=== PATIENT | male | born 1970 | race Caucasian/White ===

== ENCOUNTER 2017-04-16 15:57 | Emergency (ER) | payer OTHER, SELFPAY | END 2017-04-16 17:45 | disposition home or self-care (01) | PROVIDERS: Emergency Provider Emergency Medicine; Visit Provider Emergency Medicine | DX: S86.811A Strain of other muscle(s) and tendon(s) at lower leg level, right leg, initial encounter (principal); X50.0XXA Overexertion from strenuous movement or load, initial encounter; F17.210 Nicotine dependence, cigarettes, uncomplicated | CPT/HCPCS: 99282 ==

== ENCOUNTER → 2017-04-19 | Outpatient (CLI) | payer OTHER, SELFPAY | PROVIDERS: Family Provider Family Medicine; Visit Provider Family Medicine | DX: M79.604 Pain in right leg (principal) | CPT/HCPCS: 93971 ==